=== PATIENT | male | born 1985 | race Caucasian/White ===

== ENCOUNTER 2016-11-29 21:53 | Emergency (ER) | payer MEDICAID ==
[~2016-11-29] VITALS: Ht 175.3 cm; Wt 78.0 kg
[~2016-11-29 21:53] MED LIST: Z.0.NO CURRENT MEDS
[2016-11-29 21:55] VITALS: BP 151/87; PULSE 73; RESP 16; TEMP 97.3; O2SAT 100
[2016-11-29] MEDS ORDERED: CEPH-460 PO (22:47)
[2016-11-29] MEDS ORDERED: BACT800T5 PO (22:47)
--- NOTE | 2016-11-29 22:50 | PD ---
HPI Chief Complaint: Bite or Sting Time Seen by Provider: 22:40 Travel History International Travel<30 days: No Contact w/Intl Traveler<30days: No Traveled to known affect area: No History of Present Illness HPI 31-year-old male with left forearm redness. It started as a small bump yesterday, progressed today. Pain is throbbing to the left forearm where the skin is red. He denies any IV drug use ever. 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 No fevers or chills, no drainage. No other complaints. PFS Past Medical History Diminished Hearing: No Immunizations Current: Yes Past Surgical History Abdominal Surgery: Yes (hernia repair 2004) Social History Alcohol Use: No Tobacco Use: No Substance Use: No Allergies-Medications (Allergen,Severity, Reaction): Coded Allergies: No Known Allergies (Verified , 11/29/16) Reported Meds & Prescriptions Reported Meds & Active Scripts Active Reported No Current Meds (Miscellaneous Medication) [facility] Systems General / Constitutional: No: Fever, Chills Skin: Positive Other (skin redness, pain) Physical Exam Narrative GENERAL: Well-developed well-nourished male in no acute distress SKIN: Warm and dry. Area of mild erythema noted to the volar left forearm, there is mild central induration without fluctuance or drainage. HEAD: Atraumatic. Normocephalic. EYES: Pupils equal and round. No scleral icterus. No injection or drainage. ENT: No nasal bleeding or discharge. Mucous membranes pink and moist. NECK: Trachea midline. No JVD. CARDIOVASCULAR: Regular rate and rhythm. No murmur appreciated. RESPIRATORY: No accessory muscle use. Clear to auscultation. Breath sounds equal bilaterally. Data Data Last Documented VS Vital Signs Date Time Temp Pulse Resp B/P Pulse Ox O2 Delivery O2 Flow Rate FiO2 11/29/16 21:55 97.3 73 16 151/87 100 Room Air Orders Sulfamet-Trimeth Ds 800-160 Mg (Bactrim (11/29/16 23:00) Cephalexin (Keflex) (11/29/16 23:00) MDM Medical Decision Making Medical Screen Exam Complete: Yes Emergency Medical Condition: Yes Medical Record Reviewed: Yes Differential Diagnosis Cellulitis, abscess, lymphangitis Narrative Course Examination reveals mild cellulitis left forearm. This will be treated with antibiotics orally as an outpatient. Diagnosis Primary Impression: Cellulitis Qualified Code: L03.114 - Cellulitis of left upper extremity Additional Instructions: Antibiotics as prescribed. Warm compresses several times a day 10 minutes at a time. Return for any evidence of new or worsening symptoms. Med/Other Pt SpecificInfo: Prescription(s) given Scripts Cephalexin (Keflex)500 Mg Xql177 Mg PO Q8H #30 CAP Ref 0 Prov:Medardo Barone MD 11/29/16 Sulfamethoxazole-Trimethoprim (Bactrim DS)800-160 Mg Tab1 Tab PO BID #20 TAB Ref 0 Prov:Medardo Barone MD 11/29/16 Disposition: 01 DISCHARGE HOME Condition: Stable Jaren Zapata Nov 29, 2016 22:50
[2016-11-29] MEDS ORDERED: CEPHALEXIN MONOHYDRATE 500 MG CAP PO ONE (23:00)
[2016-11-29] MEDS ORDERED: SULFAMETHOXAZOLE-TRIMETHOPRIM DS 800-160 MG TAB PO ONE (23:00)
== END 2016-11-29 23:07 | disposition home or self-care (01) ==
LOC: NEPD 21:53
DX: L03.114 Cellulitis of left upper limb (principal)
CPT/HCPCS: 99282